=== PATIENT | female | born 1955 | race Caucasian/White ===

== ENCOUNTER 2017-10-08 11:21 | Day surgery (SDC) | payer MEDICAID ==
[~2017-10-08] VITALS: Ht 152.4 cm; Wt 79.4 kg
[2017-10-08] MEDS ORDERED: IOHEXOL 50 ML IV ONE (12:46)
[2017-10-08] MEDS ORDERED: MIDAZOLAM HCL 5 MG/5 ML VIAL ONE (16:24)
[2017-10-08] MEDS ORDERED: methylPREDNISolone ACETATE 80 MG/ML ONE (16:28)
[2017-10-08] MEDS ORDERED: NS 50 ML BAG IV ONE (16:28)
[2017-10-08] MEDS ORDERED: LIDOCAINE PF 2%, 200 MG/10 ML AMPUL.LUER (EPIDURAL) INJ ONE (16:28)
[2017-10-08] MEDS ORDERED: DIPHENHYDRAMINE INJ 50 MG/ML VIAL ONE (16:28)
[2017-10-08] MEDS ORDERED: BUPIVACAINE /PF 0.25% 30 ML VIAL INJ ONE (16:28)
[2017-10-08 18:04] VITALS: BP_SYST 139
== END 2017-10-08 16:15 | disposition home or self-care (01) ==
LOC: SDS 11:21
PROVIDERS: ATTEND Internal Medicine
DX: M51.16 Intervertebral disc disorders with radiculopathy, lumbar region (principal); M54.5 Low back pain; I10 Essential (primary) hypertension; K21.9 Gastro-esophageal reflux disease without esophagitis; Z88.0 Allergy status to penicillin; Z79.899 Other long term (current) drug therapy; Z80.49 Family history of malignant neoplasm of other genital organs; Z83.3 Family history of diabetes mellitus; M96.1 Postlaminectomy syndrome, not elsewhere classified; M79.1 Myalgia
CPT/HCPCS: 62323; J1040; J1200; J2001; J2250; J3490; J7120; Q9967; 77003

== ENCOUNTER 2018-02-02 10:57 | Day surgery (SDC) | payer MEDICAID ==
[~2018-02-02] VITALS: Ht 152.4 cm; Wt 77.1 kg
[2018-02-02] MEDS ORDERED: IOHEXOL 300 mgI/mL, 50 mL INFUS..BTL IV ONE (10:58)
[2018-02-02] MEDS ORDERED: BUPIVACAINE /PF 0.25% 30 ML VIAL INJ ONE (10:58)
[2018-02-02] MEDS ORDERED: LIDOCAINE 2%, 20 ML MDV INJ ONE (10:58)
[2018-02-02] MEDS ORDERED: methylPREDNISolone ACETATE 80 MG/ML IM ONE (10:58)
[2018-02-02] MEDS ORDERED: DIPHENHYDRAMINE INJ 50 MG/ML VIAL IVP ONE (13:20)
[2018-02-02] MEDS ORDERED: MIDAZOLAM HCL 5 MG/5 ML VIAL IVP ONE (13:22)
[2018-02-02] MEDS ORDERED: MIDAZOLAM HCL 5 MG/5 ML VIAL ONE (16:46)
[2018-02-02 17:57] VITALS: BP_SYST 179
[2018-02-02] MEDS ORDERED: DIPHENHYDRAMINE INJ 50 MG/ML VIAL ONE (18:31)
== END 2018-02-02 15:00 | disposition home or self-care (01) ==
LOC: SDS 10:57
PROVIDERS: ATTEND Internal Medicine
DX: M51.16 Intervertebral disc disorders with radiculopathy, lumbar region (principal); I10 Essential (primary) hypertension; K21.9 Gastro-esophageal reflux disease without esophagitis; M96.1 Postlaminectomy syndrome, not elsewhere classified; M47.816 Spondylosis without myelopathy or radiculopathy, lumbar region; M79.10 Myalgia, unspecified site; Z88.0 Allergy status to penicillin; Z79.899 Other long term (current) drug therapy; Z82.49 Family history of ischemic heart disease and other diseases of the circulatory system
CPT/HCPCS: 62323; J1040; J1200; J2001; J2250; J3490; Q9967

== ENCOUNTER 2018-02-23 08:15 | Day surgery (SDC) | payer MEDICAID ==
[2018-02-23] MEDS ORDERED: MIDAZOLAM HCL 5 MG/5 ML VIAL ONE (09:44)
[2018-02-23] MEDS ORDERED: DIPHENHYDRAMINE INJ 50 MG/ML VIAL ONE (09:44)
[2018-02-23] MEDS ORDERED: NORMAL SALINE 10 ML VIAL ONE (09:45)
[2018-02-23] MEDS ORDERED: BUPIVACAINE /PF 0.25% 30 ML VIAL INJ ONE (09:45)
[2018-02-23] MEDS ORDERED: IOHEXOL 300 mgI/mL, 50 mL INFUS..BTL IV ONE (09:45)
[2018-02-23] MEDS ORDERED: methylPREDNISolone ACETATE 40 MG/ML ONE (09:45)
[2018-02-23] MEDS ORDERED: LIDOCAINE 2%, 20 ML MDV ONE (09:45)
[2018-02-23] MEDS ORDERED: IOHEXOL 0 ML IV ONE (10:26)
[2018-02-23 13:19] VITALS: BP_SYST 150
== END 2018-02-23 12:30 | disposition home or self-care (01) ==
LOC: SMU 08:15 → SDS 08:15
PROVIDERS: ATTEND Internal Medicine
DX: M50.10 Cervical disc disorder with radiculopathy, unspecified cervical region (principal); M54.5 Low back pain; M96.1 Postlaminectomy syndrome, not elsewhere classified; Z79.899 Other long term (current) drug therapy; I10 Essential (primary) hypertension; K21.9 Gastro-esophageal reflux disease without esophagitis
CPT/HCPCS: 62321; 76000; J1030; J1200; J2001; J2250; J3490; J7120; Q9967